=== PATIENT | female | born 1935 | race Caucasian/White ===

== ENCOUNTER → 2016-09-15 | Outpatient (CLI) | payer MEDICARE, BC ==
[~2016-09-15] MED LIST: AMLO5TAB2 PO; ASPI-917 PO; CARB200T6 PO; GUAI120015 PO; LORA-326 PO; LORA0.5T86 PO; LOSA100T44 PO; MAGN400C PO; METO-277 PO; POLY255P2 PO; TRAM50TA53 PO; TRIA15CR4 TOP
--- NOTE | 2016-09-15 15:13 | DI ---
Indication: ITS.REASON: SINUS PAIN R51 PROCEDURE: CT SINUSES W/O CONTRAST: Encounter: Initial Comparison: Sinus CT dated August 28, 2015 Technique: Axial CT images were performed through the sinuses without intravenous contrast. Coronal and sagittal two-dimensional reformats. Automated Exposure Control and Iterative Reconstruction dose reducing techniques were utilized. Findings: The maxillary sinuses are clear. The ostiomeatal units are widely patent. Frontal sinuses are clear as are the ethmoid air cells. Small amount of secretion noted in the left sphenoid sinus. Right sphenoid sinus is clear. Sphenoid ostia are widely patent. The visualized mastoid air cells and middle ear cavities are clear. No significant nasal septal deviation or spurring. Periapical abscess again noted surrounding the left posterior maxillary molar root. This is unchanged from the comparison. Impression: 1. No evidence of significant mucosal disease or acute sinusitis. 2. Periapical abscess involving the left posterior maxillary molar. .
== END ==
LOC: IMA 14:03
PROVIDERS: ATTEND Internal Medicine
DX: R51 Headache (principal); K04.7 Periapical abscess without sinus